=== PATIENT | female | born 1980 | race Caucasian/White ===

== ENCOUNTER 2019-06-22 17:12 | Emergency (ER) | payer BC, OTHER ==
--- NOTE | 2019-06-22 17:26 | EDM.PDOC ---
ED HPI GENERAL MEDICAL PROBLEM - General Chief Complaint: Respiratory Problem Stated Complaint: CHEST TIGHTNESS Time Seen by Provider: 06/22/19 17:22 Source of Information: Reports: Patient History Limitations: Reports: No Limitations - History of Present Illness INITIAL COMMENTS - FREE TEXT/NARRATIVE: HISTORY AND PHYSICAL: History of present illness: Patient is a 38-year-old female presents to the ED with complaint of cough. She states it started last night. She reports having a lot of pain with breathing in her chest and back. She states it feels tight. She had chills but did not check for fever. She denies nausea, vomiting, abdominal pain, shortness of breath, calf pain, recent travel. She denies significant past medical history. Review of systems: As per history of present illness and below otherwise all systems reviewed and negative. Past medical history: As per history of present illness and as reviewed below otherwise noncontributory. Surgical history: As per history of present illness and as reviewed below otherwise noncontributory. Social history: No reported history of drug or alcohol abuse. Family history: As per history of present illness and as reviewed below otherwise noncontributory. Physical exam: General: Patient sitting comfortably in no acute distress and nontoxic appearing HEENT: Atraumatic, normocephalic, pupils reactive, negative for conjunctival pallor or scleral icterus, mucous membranes moist, throat clear, neck supple, nontender, trachea midline. No meningeal signs. Lungs: Clear to auscultation, breath sounds equal bilaterally, chest nontender. Wheezing throughout all lung smith. Heart: S1S2, regular, negative for clicks, rubs, or overt murmur. Abdomen: Soft, nondistended, nontender. Negative for masses or hepatosplenomegaly. Negative for costovertebral tenderness. No rigidity, rebound , guarding. Pelvis: Stable nontender. Genitourinary: Deferred. Rectal: Deferred. Extremities: Atraumatic, negative for cords or calf pain. Neurovascular unremarkable. Neuro: Awake, alert, oriented. Cranial nerves II through XII unremarkable. Cerebellum unremarkable. Motor and sensory unremarkable throughout. Exam nonfocal. Notes: Diagnostics: Influenza, rapid strep, CXR, EKG, CBC, BMP Therapeutics: DuoNeb Solumedrol 125mg IM Prescriptions: Medrol dosepak Ventolin inhaler Impression: acute bronchitis Definitive disposition and diagnosis as appropriate pending reevaluation and review of above. chest pain with cough Pain Score (Numeric/FACES): 8 - Related Data Allergies Allergy/AdvReac Type Severity Reaction Status Date / Time No Known Allergies Allergy Verified 06/22/19 17:19 Home Meds: Home Meds Albuterol [Ventolin HFA] 1 puff INH Q4H #1 inhaler 06/22/19 [Rx] methylPREDNISolone [Medrol] 4 mg PO ASDIRECTED #1 tab.ds.pk 06/22/19 [Rx] Past Medical History Cardiovascular History: Reports: None Respiratory History: Reports: None Gastrointestinal History: Reports: None Genitourinary History: Reports: None CORRECTIONS CORPORAL History: Reports: Other (See Below) Other CORRECTIONS CORPORAL History: ovarian cysts Neurological History: Reports: None Psychiatric History: Reports: Other (See Below) Other Psychiatric History: post depression Endocrine/Metabolic History: Reports: Hypothyroidism Hematologic History: Reports: None Immunologic History: Reports: None Oncologic (Cancer) History: Reports: None Dermatologic History: Reports: None - Infectious Disease History Infectious Disease History: Reports: Chicken Pox - Past Surgical History Head Surgeries/Procedures: Reports: None HEENT Surgical History: Reports: Myringotomy w Tube(s), Other (See Below) Other HEENT Surgeries/Procedures: cleft palette Respiratory Surgical History: Reports: None GI Surgical History: Reports: Appendectomy Female Surgical History: Reports: Other (See Below) Musculoskeletal Surgical History: Reports: Knee Replacement Dermatological Surgical History: Reports: None Social & Family History - Family History Family Medical History: Noncontributory - Tobacco Use Smoking Status *Q: Never Smoker - Recreational Drug Use Recreational Drug Use: No ED ROS GENERAL - Review of Systems Review Of Systems: Comprehensive ROS is negative, except as noted in HPI. ED EXAM, GENERAL - Physical Exam Exam: See Below (see dictation) Course - Vital Signs Last Recorded V/S: Last Vital Signs Temp 98.2 F 06/22/19 17:17 Pulse 111 H 06/22/19 18:33 Resp 18 06/22/19 18:33 BP 109/73 06/22/19 18:33 Pulse Ox 98 06/22/19 18:33 - Orders/Labs/Meds Orders: Active Orders 24 hr Category Date Time Status EKG Documentation Completion [RC] STAT Care 06/22/19 18:17 Active RT Aerosol Therapy [RC] ASDIRECTED Care 06/22/19 17:31 Active CULTURE STREP A CONFIRMATION [RM] Stat Lab 06/22/19 17:22 Results STREP SCRN A RAPID W CULT CONF [RM] Stat Lab 06/22/19 17:22 Results Labs: Laboratory Tests 06/22/19 06/22/19 Range/Units 18:50 18:50 WBC 6.80 (4.0-11.0) K/uL RBC 4.84 (4.30-5.90) M/uL Hgb 13.6 (12.0-16.0) g/dL Hct 40.4 (36.0-46.0) % MCV 83.5 (80.0-98.0) fL MCH 28.1 (27.0-32.0) pg MCHC 33.7 (31.0-37.0) g/dL RDW Std Deviation 40.0 (28.0-62.0) fl RDW Coeff of Fabiano 13 (11.0-15.0) % Plt Count 199 (150-400) K/uL MPV 9.60 (7.40-12.00) fL Neut % (Auto) 74.3 (48.0-80.0) % Lymph % (Auto) 12.9 L (16.0-40.0) % Bond % (Auto) 12.2 (0.0-15.0) % Eos % (Auto) 0.3 (0.0-7.0) % Baso % (Auto) 0.3 (0.0-1.5) % Neut # (Auto) 5.1 (1.4-5.7) K/uL Lymph # (Auto) 0.9 (0.6-2.4) K/uL Bond # (Auto) 0.8 (0.0-0.8) K/uL Eos # (Auto) 0.0 (0.0-0.7) K/uL Baso # (Auto) 0.0 (0.0-0.1) K/uL Nucleated RBC % 0.0 /100WBC Nucleated RBCs # 0 K/uL Sodium 139 (136-145) mmol/L Potassium 3.7 (3.5-5.1) mmol/L Chloride 104 (98-107) mmol/L Carbon Dioxide 24.1 (21.0-32.0) mmol/L BUN 13 (7.0-18.0) mg/dL Creatinine 0.8 (0.6-1.0) mg/dL Est Cr Clr Drug Dosing 78.10 mL/min Estimated GFR (MDRD) > 60.0 ml/min Glucose 97 (74-106) mg/dL Calcium 8.6 (8.5-10.1) mg/dL Troponin I < 0.050 (0.000-0.056) ng/mL Meds: Medications Discontinued Medications Generic Name Dose Route Start Last Admin Trade Name Freq PRN Reason Stop Dose Admin Albuterol/Ipratropium 3 ml 06/22/19 17:31 06/22/19 17:39 Duoneb 3.0-0.5 Mg/3 Ml NEB 06/22/19 17:32 3 ml ONETIME ONE Administration Methylprednisolone Sodium Succinate 125 mg 06/22/19 18:17 06/22/19 18:35 Solu-Medrol IM 06/22/19 18:18 125 mg ONETIME ONE Administration Departure - Departure Time of Disposition: 19:35 Disposition: Home, Self-Care 01 Condition: Good Clinical Impression: Bronchitis - Discharge Information Prescriptions: Albuterol [Ventolin HFA] 1 puff INH Q4H #1 inhaler methylPREDNISolone [Medrol] 4 mg PO ASDIRECTED #1 tab.ds.pk Referrals: PCP,Unknown [Primary Care Provider] - Forms: ED Department Discharge Additional Instructions: The following information is given to patients seen in the emergency department who are being discharged to home. This information is to outline your options for follow-up care. We provide all patients seen in our emergency department with a follow-up referral. The need for follow-up, as well as the timing and circumstances, are variable depending upon the specifics of your emergency department visit. If you don't have a primary care physician on staff, we will provide you with a referral. We always advise you to contact your personal physician following an emergency department visit to inform them of the circumstance of the visit and for follow-up with them and/or the need for any referrals to a consulting specialist. The emergency department will also refer you to a specialist when appropriate. This referral assures that you have the opportunity for follow-up care with a specialist. All of these measure are taken in an effort to provide you with optimal care, which includes your follow-up. Under all circumstances we always encourage you to contact your private physician who remains a resource for coordinating your care. When calling for follow-up care, please make the office aware that this follow-up is from your recent emergency room visit. If for any reason you are refused follow-up, please contact the [facility] Emergency Department at and asked to speak to the emergency department charge nurse. [facility] [address] [place] [id number] [facility] [address] [place] [id number] Use inhaler and take medrol dosepak as instructed Alterante tylenol and motrin as needed Follow up with primary care provider Return to ED as needed as discussed Sepsis Event Note - Evaluation Sepsis Screening Result: No Definite Risk - Focused Exam Vital Signs: Vital Signs Temp Pulse Resp BP Pulse Ox 06/22/19 18:33 111 H 18 109/73 98 06/22/19 17:17 98.2 F 124 H 18 120/78 100 Date Exam was Performed: 06/22/19 Time Exam was Performed: 19:35 - My Orders Last 24 Hours: My Active Orders 06/22/19 17:22 CULTURE STREP A CONFIRMATION [RM] Stat STREP SCRN A RAPID W CULT CONF [RM] Stat 06/22/19 17:31 RT Aerosol Therapy [RC] ASDIRECTED 06/22/19 18:17 EKG Documentation Completion [RC] STAT - Assessment/Plan Last 24 Hours: My Active Orders 06/22/19 17:22 CULTURE STREP A CONFIRMATION [RM] Stat STREP SCRN A RAPID W CULT CONF [RM] Stat 06/22/19 17:31 RT Aerosol Therapy [RC] ASDIRECTED 06/22/19 18:17 EKG Documentation Completion [RC] STAT
[2019-06-22] MEDS: Albuterol/Ipratropium 3.0-0.5 MG/3 ML Neb Soln NEB ONE (17:39)
--- NOTE | 2019-06-22 18:07 | CR ---
Indication: Pain and shortness of breath. Technique: Chest 2 views Comparison: Chest x-ray 02/19/2009 Findings: Cardiovascular and mediastinum: Heart size and vasculature are normal in caliber and appearance. Lungs and pleural spaces: Lungs are clear. No sign of infiltrate or mass. No sign of pleural effusion. No pneumothorax. Bones and soft tissues: No significant findings. Impression: Unremarkable two view chest. Dictated by Filemon Manzanares MD @ Jun 22 2019 6:05PM Signed by Dr. Filemon Manzanares @ Jun 22 2019 6:06PM
[2019-06-22] MEDS: methylPREDNISolone Sodium Succinate 125 MG/2 ML SDV IM ONE (18:35)
[2019-06-22 19:29] LABS: BLOOD UREA NITROGEN,BUN 13 mg/dL (7.0-18.0); CARBON DIOXIDE,CO2 24.1 mmol/L (21.0-32.0); CHLORIDE,CL 104 mmol/L (98-107); GLUCOSE RANDOM 97 mg/dL (74-106); POTASSIUM,K 3.7 mmol/L (3.5-5.1); SODIUM,NA 139 mmol/L (136-145)
[2019-06-22 20:03] VITALS: BP 107/68; PULSE 100
== END 2019-06-22 20:04 | disposition home or self-care (01) ==
LOC: MW.ED 17:12
DX: J20.9 Acute bronchitis, unspecified (principal)
CPT/HCPCS: 36415; 71046; 80048; 84484; 85025; 87081; 87804; 87880; 93005; 94640; 96372; 99285; J2930; 99283; J7620-GY

== ENCOUNTER 2020-02-01 22:36 | Emergency (ER) | payer SELFPAY ==
[2020-02-01] MEDS ORDERED: Tetracaine HCl/PF 0.5% 4 ML Bottle EYELF ONE (23:40)
[2020-02-01] MEDS ORDERED: Metoclopramide 10 MG/2 ML SDV IVPUSH ONE (23:41)
[2020-02-01] MEDS ORDERED: diphenhydrAMINE 50 MG/ML SDV IVPUSH ONE (23:41)
[2020-02-01] MEDS ORDERED: Sodium Chloride 0.9% 1,000 ML IV ONE (23:41)
[2020-02-01] MEDS ORDERED: Fluorescein 1 MG Ophth Strip EYELF ONE (23:44)
--- NOTE | 2020-02-02 00:34 | CT ---
INDICATION: HEADACHE CT HEAD WITHOUT CONTRAST TECHNIQUE: Multiple axial CT images were performed through the head without intravenous contrast administration. COMPARISON: No previous studies are currently available for comparison. FINDINGS: No acute intracranial hemorrhage is identified. No extra-axial collections are evident and there is no mass effect or midline shift. Ventricles are normal in size and configuration. Brain parenchyma appears normal with unremarkable cruz-white differentiation. Osseous structures are within normal limits and no fractures are seen. Included portions of the paranasal sinuses and mastoid air cells are normally aerated. IMPRESSION: Normal non-contrast head CT. ELDON PRESTON MD [facility] Dictated by: Jone Preston MD @ 02/02/2020 00:34:30 (Electronically Signed)
--- NOTE | 2020-02-02 01:03 | EDM.PDOC ---
ED HPI GENERAL MEDICAL PROBLEM - General Chief Complaint: Eye Problems Stated Complaint: MIGRAINE Time Seen by Provider: 02/01/20 23:28 - History of Present Illness INITIAL COMMENTS - FREE TEXT/NARRATIVE: History of present illness: Patient presents complaining of a headache she has a history of migraines this headache is caused her to have significant visual changes which is occurs with her normal headaches but this 1 is worse than normal she says she is got blurred vision on the left eye and spots in the right eye she has had a headache for 3 days no trauma no fever nothing seems to make it better or worse no other unusu al part of this headache is that her left pupil is dilated she is not aware of this ever happening before she denies any focal weakness no generalized weakness no other neurological signs she has not been nauseous or vomiting Review of systems: As per history of present illness and below otherwise all systems reviewed and negative. Past medical history: As per history of present illness and as reviewed below otherwise noncontributory. Surgical history: As per history of present illness and as reviewed below otherwise noncontributory. Social history: No reported history of drug or alcohol abuse. Family history: As per history of present illness and as reviewed below otherwise noncontributory. Physical exam: HEENT: Atraumatic, normocephalic, pupils reactive, negative for conjunctival pallor or scleral icterus, mucous membranes moist, throat clear, neck supple, nontender, trachea midline. The left pupil is dilated however it is reactive to light still. Ocular muscles are intact Lungs: Clear to auscultation, breath sounds equal bilaterally, chest nontender. Heart: S1S2, regular, negative for clicks, rubs, or JVD. Abdomen: Soft, nondistended, nontender. Negative for masses or hepatosplenomegaly. Negative for costovertebral tenderness. Pelvis: Stable nontender. Genitourinary: Deferred. Rectal: Deferred. Extremities: Atraumatic, negative for cords or calf pain. Neurovascular unremarkable. Neuro: Awake, alert, oriented. Cranial nerves II through XII unremarkable. Cerebellum unremarkable. Motor and sensory unremarkable throughout. Exam nonfocal. No pronator drift pastrycook's assistant strength or even bilaterally Diagnostics: [] Therapeutics: [] Impression: [] Plan: CT of the brain check ocular pressures Benadryl Reglan reassess the patient. [] Definitive disposition and diagnosis as appropriate pending reevaluation and review of above. headache Pain Score (Numeric/FACES): 5 - Related Data Allergies Allergy/AdvReac Type Severity Reaction Status Date / Time No Known Allergies Allergy Verified 02/01/20 22:47 Home Meds: Home Meds Albuterol [Ventolin HFA] 1 puff INH Q4H #1 inhaler 06/22/19 [Rx] Acetaminophen/Pyrilamine/Caff [Midol Caplet] 2 tab PO BID PRN 02/01/20 [History] Naproxen [Naprosyn] 500 mg PO Q12HR #20 tab 02/02/20 [Rx] Past Medical History Cardiovascular History: Reports: None Respiratory History: Reports: None Gastrointestinal History: Reports: None Genitourinary History: Reports: None ACID CONDENSER History: Reports: Other (See Below) Other ACID CONDENSER History: ovarian cysts Neurological History: Reports: Migraines Psychiatric History: Reports: Other (See Below) Other Psychiatric History: post depression Endocrine/Metabolic History: Reports: Hypothyroidism Hematologic History: Reports: None Immunologic History: Reports: None Oncologic (Cancer) History: Reports: None Dermatologic History: Reports: None - Infectious Disease History Infectious Disease History: Reports: Chicken Pox - Past Surgical History Head Surgeries/Procedures: Reports: None HEENT Surgical History: Reports: Myringotomy w Tube(s), Other (See Below) Other HEENT Surgeries/Procedures: cleft palette Respiratory Surgical History: Reports: None GI Surgical History: Reports: Appendectomy Female Surgical History: Reports: Other (See Below) Musculoskeletal Surgical History: Reports: Knee Replacement Dermatological Surgical History: Reports: None Social & Family History - Family History Family Medical History: Noncontributory - Tobacco Use Smoking Status *Q: Never Smoker - Caffeine Use Caffeine Use: Reports: Energy Drinks, Soda - Recreational Drug Use Recreational Drug Use: No ED ROS GENERAL - Review of Systems Review Of Systems: See Below ED EXAM GENERAL W FULL EYE - Physical Exam Exam: See Below Course - Vital Signs Text/Narrative:: The patient's left thigh was anesthetized with tetracaine and the intraocular pressure was measured with a Rolando-Pen with 2 readings respectively [address] of the brain was read as normal by radiology. Risk and benefits of lumbar puncture and limitation of CT scanning for ruling out subarachnoid hemorrhage was discussed with the patient she is declining lumbar puncture at this time she was warned Patient will be discharged home with naproxen she is to follow-up with neurology. Judy at 2 AM she is pain-free at this time after Benadryl and Reglan she will be discharged home. Last Recorded V/S: Last Vital Signs Temp 36.6 C 02/02/20 02:02 Pulse 87 02/02/20 02:02 Resp 14 02/02/20 02:02 BP 101/68 02/02/20 02:02 Pulse Ox 96 02/02/20 02:02 - Orders/Labs/Meds Orders: Active Orders 24 hr Category Date Time Status Visual Acuity [Vision Test] [RC] ASDIRECTED Care 02/01/20 23:43 Active Meds: Medications Discontinued Medications Generic Name Dose Route Start Last Admin Trade Name Freq PRN Reason Stop Dose Admin Diphenhydramine HCl 25 mg 02/01/20 23:41 02/02/20 00:50 Benadryl IVPUSH 02/01/20 23:42 25 mg ONETIME ONE Administration Fluorescein Sodium 1 mg 02/01/20 23:44 02/02/20 02:01 Ful-Raina EYELF 02/01/20 23:45 Not Given ONETIME ONE Sodium Chloride 1,000 mls @ 999 mls/hr 02/01/20 23:41 02/02/20 00:50 Normal Saline IV 02/02/20 00:41 999 mls/hr .Bolus ONE Administration Metoclopramide HCl 10 mg 02/01/20 23:41 02/02/20 00:50 Reglan IVPUSH 02/01/20 23:42 10 mg ONETIME ONE Administration Tetracaine HCl 2 ml 02/01/20 23:40 02/02/20 00:50 Tetracaine 0.5% Steri-Unit Vicki EYELF 02/01/20 23:41 2 drop ASDIRECTED ONE Administration Departure - Departure Time of Disposition: 02:04 Disposition: Home, Self-Care 01 Condition: Good Clinical Impression: Headache, Episodic anisocoria - Discharge Information *PRESCRIPTION DRUG MONITORING PROGRAM REVIEWED*: Not Applicable *COPY OF PRESCRIPTION DRUG MONITORING REPORT IN PATIENT JOSEFA: Not Applicable Prescriptions: Naproxen [Naprosyn] 500 mg PO Q12HR #20 tab Instructions: General Headache Without Cause Referrals: PCP,None [Primary Care Provider] - Amy Akhtar MD [Physician] - Forms: ED Department Discharge Additional Instructions: The following information is given to patients seen in the emergency department who are being discharged to home. This information is to outline your options for follow-up care. We provide all patients seen in our emergency department with a follow-up referral. The need for follow-up, as well as the timing and circumstances, are variable depending upon the specifics of your emergency department visit. If you don't have a primary care physician on staff, we will provide you with a referral. We always advise you to contact your personal physician following an emergency department visit to inform them of the circumstance of the visit and for follow-up with them and/or the need for any referrals to a consulting specialist. The emergency department will also refer you to a specialist when appropriate. This referral assures that you have the opportunity for follow-up care with a specialist. All of these measure are taken in an effort to provide you with optimal care, which includes your follow-up. Under all circumstances we always encourage you to contact your private physician who remains a resource for coordinating your care. When calling for follow-up care, please make the office aware that this follow-up is from your recent emergency room visit. If for any reason you are refused follow-up, please contact the [facility] Emergency Department at and asked to speak to the emergency department charge nurse. [facility] [address] [place] [address] [place] [address] Sepsis Event Note (ED) - Evaluation Sepsis Screening Result: No Definite Risk - Focused Exam Vital Signs: Vital Signs Temp Pulse Resp BP Pulse Ox 02/02/20 02:02 36.6 C 87 14 101/68 96 02/01/20 22:43 36.6 C 101 H 18 121/90 96 - My Orders Last 24 Hours: My Active Orders 02/01/20 23:43 Visual Acuity [Vision Test] [RC] ASDIRECTED - Assessment/Plan Last 24 Hours: My Active Orders 02/01/20 23:43 Visual Acuity [Vision Test] [RC] ASDIRECTED
[2020-02-02 02:02] VITALS: BP 101/68; PULSE 87
== END 2020-02-02 02:20 | disposition home or self-care (01) ==
LOC: MW.ED 22:36
DX: H57.02 Anisocoria (principal)
CPT/HCPCS: 70450; 96374; 96375; 99284; J1200; J2765; J7030

== ENCOUNTER 2023-03-23 17:43 | Emergency (ER) | payer BC, OTHER ==
[2023-03-23] MEDS ORDERED: Ketorolac 30 MG/ML SDV IM STA (22:13)
[2023-03-23] MEDS ORDERED: Clindamycin HCl 150 MG Cap PO STA (22:13)
[2023-03-23] MEDS ORDERED: HYDROmorphone 1 MG/ML Syringe IM ONE (22:13)
[2023-03-23] MEDS ORDERED: Benzocaine 20% Topical Spray UD MUCMEM ONE (22:33)
[2023-03-23 23:39] VITALS: BP 112/66; PULSE 77
== END 2023-03-23 23:39 | disposition home or self-care (01) ==
LOC: MW.ED 17:43
DX: K04.7 Periapical abscess without sinus (principal)
CPT/HCPCS: 96372; 99282; A9270; J1170; J1885; 99283